=== PATIENT | female | born 1955 | race Caucasian/White ===

== ENCOUNTER 2017-05-20 09:36 | Emergency (ER) | payer MEDICARE ==
[~2017-05-20] VITALS: Ht 165.1 cm; Wt 71.0 kg
[2017-05-20] MEDS ORDERED: VENTOLIN HFA IN (10:07)
[2017-05-20] MEDS ORDERED: PREDNISONE50 MG PO (10:17)
[2017-05-20] MEDS ORDERED: PROAIR HFA108 MCG/AC PO (10:17)
[2017-05-20] MEDS ORDERED: ZPAK PO (10:17)
[2017-05-20] MEDS ORDERED: DOXYCYC MONO100 M1 PO (10:49)
[2017-05-20 10:52] VITALS: BP 104/70
== END 2017-05-20 10:52 | disposition home or self-care (01) ==
LOC: ED 09:36
DX: J06.9 Acute upper respiratory infection, unspecified (principal); J44.1 Chronic obstructive pulmonary disease with (acute) exacerbation; R50.9 Fever, unspecified; F17.210 Nicotine dependence, cigarettes, uncomplicated; R09.81 Nasal congestion; R05 Cough; R11.2 Nausea with vomiting, unspecified; R19.7 Diarrhea, unspecified; M79.1 Myalgia; R06.02 Shortness of breath

== ENCOUNTER 2017-07-09 08:38 | Emergency (ER) | payer MEDICARE ==
[~2017-07-09] VITALS: Ht 165.1 cm; Wt 75.0 kg
[~2017-07-09 08:38] MED LIST: DOXYCYC MONO100 M1 PO; PREDNISONE50 MG PO; PROAIR HFA108 MCG/AC PO; VENTOLIN HFA IN; ZPAK PO
[2017-07-09] MEDS ORDERED: MEDDOSEPAK PO (09:27)
[2017-07-09] MEDS ORDERED: CEPHALEXIN500 MG PO (09:27)
[2017-07-09 09:44] VITALS: BP 125/71
[2017-07-09] MEDS ORDERED: ROBITUSSIN AC10 ML PO (10:03)
== END 2017-07-09 10:08 | disposition home or self-care (01) ==
LOC: ED 08:38
DX: J06.9 Acute upper respiratory infection, unspecified (principal); R05 Cough; J44.9 Chronic obstructive pulmonary disease, unspecified; R50.9 Fever, unspecified; F17.210 Nicotine dependence, cigarettes, uncomplicated; R09.81 Nasal congestion

== ENCOUNTER 2019-09-21 | Emergency (ER) | payer MEDICARE ==
[~2019-09-21] MED LIST changes: +CEPHALEXIN500 MG PO; +MEDDOSEPAK PO; +ROBITUSSIN AC10 ML PO
[2019-09-21] MEDS ORDERED: NEURONTIN300 MG PO (06:40)
[2019-09-21 07:19] LABS: HEMATOCRIT 42.3 % (37.0-47.0); HEMOGLOBIN 13.6 g/dl (12.0-16.0); IMMATURE GRANULOCYTES 0.4 % (0.0-5.0); MEAN CORPUSCULAR HGB 32.5 pG CALC (26.0-32.0); MEAN CORPUSCULAR HGB CONC 32.2 g/dL CAL (32.0-36.0); NEUT# 5.4 thou/uL (2.00-7.15); RED BLOOD COUNT 4.19 mill/uL (4.20-5.60); RED CELL DISTRI WIDTH 15.5 % (11.5-15.5)
[2019-09-21 07:34] LABS: ALBUMIN 3.9 g/dL (3.2-5.0); ALKALINE PHOSPHATASE 199 u/l (38-126); ANION GAP 11 (6-22 (CALC)); BILIRUBIN, TOTAL 0.5 mg/dL (0.0-1.4); BUN 7 mg/dL (8-23); BUN/CREATININE RATIO 14 (12-20 (CALC)); CARBON DIOXIDE 26 mmol/l (22-30); CHLORIDE 102 mmol/l (95-108); CREATININE 0.5 mg/dL (0.5-1.0); GFR > 60 ML/MIN (>=60 (CALC)); GFR FOR AFR.AMER. > 60 ML/MIN (>=60 (CALC)); POTASSIUM 3.7 mmol/l (3.5-5.1); SGOT/AST 31 u/l (9-36); SODIUM 136 mmol/l (137-146); TOTAL PROTEIN 7.7 g/dL (6.3-8.2)
== END 2019-09-21 09:31 | disposition short-term general hospital (02) ==
PROVIDERS: Family Medicine
PROC: 0SS9XZZ Reposition Right Hip Joint, External Approach (ICD-10-PCS; principal; 2019-09-21)
DX: T84.020A Dislocation of internal right hip prosthesis, initial encounter (principal); J44.9 Chronic obstructive pulmonary disease, unspecified; G62.9 Polyneuropathy, unspecified; F17.210 Nicotine dependence, cigarettes, uncomplicated; Y83.1 Surgical operation with implant of artificial internal device as the cause of abnormal reaction of the patient, or of later complication, without mention of misadventure at the time of the procedure